=== PATIENT | female | born 1950 | race Caucasian/White ===

== ENCOUNTER → 2020-08-20 11:59 | Outpatient (CLI) | payer SELFPAY, OTHER ==
--- NOTE | 2020-08-20 12:04 | CT_ITS ---
STUDY: CT LEFT KNEE WITHOUT CONTRAST REASON FOR EXAM: Lateral tibial plateau fracture, evaluate displacement. TECHNIQUE: Transaxial CT imaging of the knee was performed. Coronal and sagittal images were reformatted. Individualized dose optimization techniques were used for this CT. COMPARISON: None. FINDINGS: Normal distal femur. There is preservation of the articular joint space of the medial knee compartment. There is a lateral tibial plateau fracture depressed maximally at the posterior aspect by 0.7 cm (sagittal reconstructions 53-65; coronal reconstructions 30-41) with extension of the fracture into the proximal tibiofibular articulation (coronal reconstruction 41) and also extending across the midline across the bases of the tibial spines (coronal reconstructions 37-39; axial image 48). There is preservation of the articular joint space of the lateral knee compartment. Normal patellofemoral articulation. There is a small patellar enthesophyte. There is a moderate-sized lipohemarthrosis. The quadriceps tendon is grossly normal. The patellar tendon is grossly normal. Normal Hoffa''s fat pad. There is anterior soft tissue swelling. CT/Extremity Lower without Contra IMPRESSION: Depressed lateral tibial plateau fracture. Lipohemarthrosis. Electronically Signed: Tarun Nunez MD at 13:03 EDT Tel , Service support ,
== END ==
PROVIDERS: Referring Provider Physician Assistant; Visit Provider Physician Assistant
DX: S82.122A Displaced fracture of lateral condyle of left tibia, initial encounter for closed fracture (principal); X58.XXXA Exposure to other specified factors, initial encounter; Y93.9 Activity, unspecified; Y92.9 Unspecified place or not applicable; Y99.9 Unspecified external cause status
CPT/HCPCS: 73700